=== PATIENT | female | born 1990 | race Caucasian/White ===

== ENCOUNTER 2018-11-12 11:30 | Emergency (ER) | payer BC ==
[~2018-11-12] VITALS: Ht 152.4 cm; Wt 57.7 kg
[2018-11-12 11:37] VITALS: BP 112/69; PULSE 80; RESP 20; Ht 152.4 cm; Wt 57.7 kg
[2018-11-12] MEDS ORDERED: VIGA LEFT EYE (12:24)
[2018-11-12] MEDS ORDERED: TETRACAINE 0.5% 4 ML OPH LEFT EYE ONE (12:30)
[2018-11-12] MEDS ORDERED: FLUORESCEIN STRIP LEFT EYE ONE (12:30)
--- NOTE | 2018-11-12 12:45 | ERD ---
ER Documentation Chief Complaint Chief Complaint c/o left eye pain after hit by a "paper clip" HPI 28-year-old female patient with no significant past medical history presents to the ED complaining of left eye injury. States that she was putting eyelashes on using a paperclip and accidentally poked her left eye when she was trying to separate the eyelashes. States that she accidently poked the white part of her eye above her left cornea. Patient reports that she tried to apply retaine eye ointment but it did not help. States that she wears contacts and glasses. D escribes his pain as sharp and rates a 10 out of 10. Denies any vision loss, diplopia, dizziness, vomiting, neck stiffness. ROS All systems reviewed and are negative except as per history of present illness. Medications Home Meds Active Scripts Ibuprofen* (Motrin*) 400 Mg Tab, 400 MG PO Q6, #20 TAB Prov:CALEB MULTANI PA-C 11/12/18 Moxifloxacin Hcl* (Vigamox*) 0.5% - 3 Ml Opht, 1 DROP LEFT EYE TID for 7 Days, EA Instill 1-2 drops every 2 hours while awake for 2 days then every 4-8 hours for 5 days. Prov:CALEB MULTANI PA-C 11/12/18 Allergies Allergies: Coded Allergies: No Known Allergy (Unverified , 11/12/18) PMhx/Soc Medical and Surgical Hx: pt denies Medical Hx, pt denies Surgical Hx Hx Alcohol Use: No Hx Substance Use: No Hx Tobacco Use: No Smoking Status: Never smoker FmHx Family History: No diabetes, No coronary disease Physical Exam Vitals Vital Signs Date Temp Pulse Resp B/P (MAP) Pulse Ox O2 O2 Flow FiO2 Time Delivery Rate 11/12/18 97.5 80 20 112/69 100 11:37 (83) Physical Exam Const: [id number], well-nourished. In no acute distress. Head: Atraumatic, normocephalic Eyes: Normal Conjunctiva without injection ENT: Normal external ear, nose and mouth. Neck: Full range of motion. No meningismus. Resp: Clear to auscultation bilaterally. No wheezing, rhonchi, rales, or crackles. No accessory muscle use. No retractions. Cardio: Regular rate and rhythm, no murmurs Skin: No petechiae or rashes Back: No midline tenderness. No CVA tenderness. Ext: No cyanosis, or edema. Cap refill less than 2 seconds. Distal pulses intact bilaterally. Neur: Awake and alert. Normal gait and coordination. Muscle strength 5/5. Sensation intact bilaterally. Psych: Normal Mood and Affect Results 24 hrs Current Medications Medications Dose Sig/Dimitri Start Time Status Last (Trade) Ordered Route PRN Stop Time Admin Dose Reason Admin Fluorescein 1 strip ONCE ONCE 11/12/18 DC Sodium LEFT EYE 12:30 11/12/18 (Lejex-U-Jflc 12:31 p) Tetracaine 1 drop ONCE ONCE 11/12/18 DC HCl LEFT EYE 12:30 11/12/18 (Tetracaine 12:31 0.5% Steri-Unit Odilia) 1 tab ONCE ONCE 11/12/18 DC 11/12/18 Acetaminophen PO 13:00 11/12/18 12:55 / 13:00 Hydrocodone Bitart ([place] (5/325)) Procedures/MDM 28-year-old female patient with no significant past medical history presents to ED complaining of a left eye injury. Patient is afebrile and nontoxic- appearing. 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 Patient is appropriate for outpatient antibiotics eyedrops. Patient's ocular symptoms have stabilized while they have been evaluated in the department and are appropriate for outpatient work up. Low suspicion for ruptured globe, retinal detachment, periorbital cellulitis, acute angle closure glaucoma, deep space infection, iritis, traumatic hyphema, conjunctivitis, subconjunctival hemorrhage, corneal abrasion, corneal ulcer, pterygium, hypopyon , blepharitis, hordeolum, chalazion, or other emergent conditions. Diagnosis: Eye Injury Discharge medications: Ibuprofen, Vigamox Follow up with cell plasterer within 24 hours. Instructed patient to return to the ED sooner for any worsening symptoms. Patient's questions were answered. Patient is hemodynamically stable. Patient understood and agreed with discharge plan. Patient discharged stable. Disclaimer: Inadvertent spelling and grammatical errors are likely due to EHR/dictation software use and do not reflect on the overall quality of patient care. Also, please note that the electronic time recorded on this note does not necessarily reflect the actual time of the patient encounter. Departure Diagnosis: Primary Impression: Eye injury Encounter type: initial encounter Laterality: left Qualified Codes: S05.92XA - Unspecified injury of left eye and orbit, initial encounter Condition: Stable Patient Instructions: Corneal Injury, Corneal Abrasion, Corneal Ulcer Referrals: [facility] YOU HAVE RECEIVED A MEDICAL SCREENING EXAM AND THE RESULTS INDICATE THAT YOU DO NOT HAVE A CONDITION THAT REQUIRES URGENT TREATMENT IN THE EMERGENCY DEPARTMENT. FURTHER EVALUATION AND TREATMENT OF YOUR CONDITION CAN WAIT UNTIL YOU ARE SEEN IN YOUR DOCTORS OFFICE WITHIN THE NEXT 1-2 DAYS. IT IS YOUR RESPONSIBILITY TO MAKE AN APPOINTMENT FOR FOLOW-UP CARE. IF YOU HAVE A PRIMARY DOCTOR --you should call your primary doctor and schedule an appointment IF YOU DO NOT HAVE A PRIMARY DOCTOR YOU CAN CALL OUR PHYSICIAN REFERRAL HOTLINE AT IF YOU CAN NOT AFFORD TO SEE A PHYSICIAN YOU CAN CHOSE FROM THE FOLLOWING [facility] [address] [facility]. [facility] [address] [facility]. [facility] [address] [facility]. [facility] [address] [facility]. [facility] [address] [facility]. [facility]. [address] [facility]. [facility] YOU HAVE RECEIVED A MEDICAL SCREENING EXAM AND THE RESULTS INDICATE THAT YOU DO NOT HAVE A CONDITION THAT REQUIRES URGENT TREATMENT IN THE EMERGENCY DEPARTMENT. FURTHER EVALUATION AND TREATMENT OF YOUR CONDITION CAN WAIT UNTIL YOU ARE SEEN IN YOUR DOCTORS OFFICE WITHIN THE NEXT 1-2 DAYS. IT IS YOUR RESPONSIBILITY TO MAKE AN APPOINTMENT FOR FOLOW-UP CARE. IF YOU HAVE A PRIMARY DOCTOR --you should call your primary doctor and schedule and appointment IF YOU DO NOT HAVE A PRIMARY DOCTOR YOU CAN CALL OUR PHYSICIAN REFERRAL HOTLINE AT . IF YOU CAN NOT AFFORD TO SEE A PHYSICIAN YOU CAN CHOSE FROM THE FOLLOWING [facility] INSTITUTIONS: [facility] [address] [place] [address] [facility] [address] [place] [address] [facility] [address] [place] [address] [facility] Hours: Mon - Fri 9:00 AM - 5:00 PM Additional Instructions: Call your primary care doctor TOMORROW for an appointment for a referral to see an opthalmologist. See the doctor sooner or return here if your condition worsens before your appointment time. CALEB MULTANI PA-C Nov 12, 2018 12:45
[2018-11-12] MEDS ORDERED: ACET500C5 PO (12:47)
[2018-11-12] MEDS ORDERED: IBUP-1561 PO (12:51)
[2018-11-12] MEDS ORDERED: HYDROCODONE/APAP (5/325) TAB PO ONE (13:00)
== END 2018-11-12 12:57 | disposition home or self-care (01) ==
LOC: FTE 11:30
DX: S05.92XA Unspecified injury of left eye and orbit, initial encounter (principal); W22.8XXA Striking against or struck by other objects, initial encounter; Y92.9 Unspecified place or not applicable
CPT/HCPCS: 99283; Z7610